=== PATIENT | male | born 1980 | race Hispanic/Latino ===

== ENCOUNTER 2020-09-20 20:18 | Inpatient (IN) | payer OTHER ==
[~2020-09-20] VITALS: Ht 180.3 cm; Wt 122.9 kg
[2020-09-20 20:50] LABS: BASOPHILS % (AUTO) 0.5 % (0.0-5.0); HEMATOCRIT 34.1 % (42-54); LYMPHOCYTES % (AUTO) 13.7 % (21.0-51.0); MEAN CORPUSCULAR HEMOGLOBIN 30.1 pg (27.0-33.0); MEAN CORPUSCULAR HGB CONC 33.1 g/dL (32.0-36.0); MEAN CORPUSCULAR VOLUME 90.9 fL (79-99); NEUTROPHILS % (AUTO) 74.7 % (40.0-77.0); PLATELET COUNT (AUTO) 277 K/uL (130-400); RED BLOOD CELL COUNT(AUTO) 3.75 MIL/uL (4.50-6.20); RED CELL DISTRIBUTION WIDTH 13.2 % (11.0-15.5); WHITE BLOOD COUNT (AUTO) 14.5 K/uL (4.8-10.8)
[2020-09-20 21:06] LABS: ALBUMIN 2.7 g/dL (3.5-5.0); BILIRUBIN,TOTAL 0.4 mg/dL (0.2-1.0); CREATININE 1.1 mg/dL (0.5-1.5); POTASSIUM 4.1 mmol/L (3.5-5.1)
[2020-09-20] MEDS ORDERED: ONDANSETRON HCL 4 MG/2 ML VIAL ONE (21:28)
[2020-09-20] MEDS ORDERED: MORPHINE SULFATE 2 MG/ML 1ML SYG ONE (21:28)
[2020-09-20] MEDS ORDERED: CLINDAMYCIN 900 MG/D5% WATER 50 ML IV ONE (21:28)
[2020-09-20 22:34] LABS: APPEARANCE,URINE Clear (CLEAR); BILIRUBIN,URINE Negative (NEGATIVE); COLOR,URINE Yellow (YELLOW); GLUCOSE, URINE (UA) >=1000 mg/dL (NEGATIVE); KETONES,URINE Negative (NEGATIVE); LEUKOCYTE ESTERASE ,URINE Negative (NEGATIVE); NITRATE,URINE Negative (NEGATIVE); OCCULT BLOOD,URINE Negative (NEGATIVE); PH,URINE 6.5 (5.0-8.0); PROTEIN,URINE Trace mg/dL (NEGATIVE); UROBILINOGEN,URINE 0.2 mg/dL (0.2-1.0)
[2020-09-20 22:42] LABS: ABG HCO3 25.5 mmol/L (21.0-28.0); ABG OXYGEN SATURATION 94.9 % (95.0-99.0); ABG PCO2 40 mmHg (35-48)
[2020-09-20 22:49] LABS: BACTERIA,URINE None Seen /HPF (None Seen); MUCUS,URINE Few LPF (None Seen); RBC,URINE None Seen /HPF (0-1); WBC,URINE None Seen /HPF (0-1)
[2020-09-20] MEDS ORDERED: GLUCAGON 1MG KIT 1 MG ML IM PRN (23:00)
[2020-09-20] MEDS ORDERED: DEXTROSE 50%-WATER 50 ML DISP.SYRIN IV PRN (23:00)
[2020-09-20] MEDS: INSULIN HUMULIN R 100 UNIT/ML 3ML SQ SCH (23:00)
[2020-09-20 23:13] LABS: HEMOGLOBIN A1C 12.4 % (4.0-6.0)
[2020-09-20] MEDS: SODIUM CHLORIDE 0.9% 1000ML 1,000 ML IV SCH (23:15)
[2020-09-20] MEDS ORDERED: NITROGLYCERIN 0.4 MG SL TAB SL PRN (23:15)
[2020-09-20] MEDS ORDERED: ONDANSETRON HCL 4 MG/2 ML VIAL IV PRN (23:15)
[2020-09-20] MEDS ORDERED: SODIUM CHLORIDE 0.9% 1000ML 1,000 ML IV SCH ×2 (23:15→23:30)
[2020-09-20] MEDS ORDERED: ACETAMINOPHEN 325 MG TAB PO PRN (23:15)
[2020-09-20 23:16] LABS: MAGNESIUM 1.6 mg/dL (1.80-2.40)
[2020-09-20] MEDS ORDERED: KETOROLAC TROMETHAMINE 30MG/ML ONE (23:27)
[2020-09-20] MEDS ORDERED: LORAZEPAM 2 MG/ML 1 ML VIAL ONE (23:28)
[2020-09-20 23:29] LABS: INR 0.96 (0.85-1.15); PROTHROMBIN TIME 10.5 SEC (9.6-11.6)
[2020-09-20] MEDS ORDERED: INSULIN HUMULIN R 100 UNIT/ML 3ML ONE (23:29)
[2020-09-20 23:30] LABS: PARTIAL THROMBOPLASTIN TIME 26.2 SEC (26.3-35.5)
[2020-09-20 23:41] LABS: CRP QUANTITATIVE 119.7 mg/L (0.00-9.0)
[2020-09-21] MEDS ORDERED: INSULIN GLARGINE 100 UNITS/ML 10 ML VIAL SQ SCH
[2020-09-21] MEDS ORDERED: MAGNESIUM 2GM PREMIX 50ML 50 ML IV SCH ×2 (00:30)
[2020-09-21] MEDS ORDERED: MAGNESIUM 2GM PREMIX 50ML 50 ML IV ONE (01:04)
[2020-09-21] MEDS ORDERED: INSULIN HUMULIN R 100 UNIT/ML 3ML ONE ×3 (03:56→16:09)
[2020-09-21] MEDS: INSULIN HUMULIN R 100 UNIT/ML 3ML SQ SCH ×6 (04:00→23:00)
[2020-09-21] MEDS ORDERED: CLINDAMYCIN 600 MG/D5% WATER 50 ML IV ONE ×3 (04:24→12:34)
[2020-09-21] MEDS ORDERED: HYDROCODONE/ACETAMINOPHEN 5/325 MG TAB ONE ×4 (04:30→20:14)
[2020-09-21] MEDS: CLINDAMYCIN 600 MG/D5% WATER 50 ML IV SCH ×3 (05:00→21:00)
[2020-09-21 06:18] LABS: BASOPHILS % (AUTO) 0.3 % (0.0-5.0); EOSINOPHILS % (AUTO) 1.9 % (0.0-8.0); LYMPHOCYTES % (AUTO) 13.4 % (21.0-51.0); MEAN CORPUSCULAR HGB CONC 33.1 g/dL (32.0-36.0); MEAN CORPUSCULAR VOLUME 90.4 fL (79-99); MONOCYTES % (AUTO) 7.4 % (3.0-13.0); NEUTROPHILS % (AUTO) 76.2 % (40.0-77.0); PLATELET COUNT (AUTO) 259 K/uL (130-400); RED BLOOD CELL COUNT(AUTO) 3.87 MIL/uL (4.50-6.20); RED CELL DISTRIBUTION WIDTH 13.1 % (11.0-15.5); WHITE BLOOD COUNT (AUTO) 14.3 K/uL (4.8-10.8)
[2020-09-21 06:44] LABS: ALBUMIN 2.8 g/dL (3.5-5.0); BILIRUBIN,TOTAL 0.5 mg/dL (0.2-1.0); CREATININE 0.7 mg/dL (0.5-1.5); POTASSIUM 4.4 mmol/L (3.5-5.1); TOTAL PROTEIN, SERUM 6.4 g/dL (6.0-8.3)
[2020-09-21] MEDS: SODIUM CHLORIDE 0.9% 1000ML 1,000 ML IV SCH ×3 (07:15→23:15)
[2020-09-21] MEDS ORDERED: HYDROCODONE/ACETAMINOPHEN 10/325 MG TAB ONE (07:41)
[2020-09-21] MEDS ORDERED: ENOXAPARIN SODIUM 40 MG/0.4 ML SYRINGE SQ ONE (07:41)
[2020-09-21] MEDS ORDERED: FAMOTIDINE 20MG TAB 20 MG TAB ONE (07:41)
[2020-09-21] MEDS: FAMOTIDINE 20MG TAB 20 MG TAB PO SCH ×2 (09:00→21:00)
[2020-09-21] MEDS: ENOXAPARIN SODIUM 40 MG/0.4 ML SYRINGE SQ SCH (09:00)
[2020-09-21] MEDS: INSULIN GLARGINE 100 UNITS/ML 10 ML VIAL SQ SCH (21:00)
[2020-09-22] MEDS ORDERED: LABETALOL HCL 5 MG/ML 20ML VIAL IV ONE
[2020-09-22] MEDS ORDERED: HYDROCODONE/ACETAMINOPHEN 5/325 MG TAB ONE ×3 (00:39→07:49)
[2020-09-22] MEDS: INSULIN HUMULIN R 100 UNIT/ML 3ML SQ SCH ×7 (04:00→20:32)
[2020-09-22] MEDS: CLINDAMYCIN 600 MG/D5% WATER 50 ML IV SCH ×3 (05:00→20:31)
[2020-09-22 05:40] LABS: BASOPHILS % (AUTO) 0.5 % (0.0-5.0); EOSINOPHILS % (AUTO) 1.9 % (0.0-8.0); HEMATOCRIT 34.5 % (42-54); LYMPHOCYTES % (AUTO) 12.7 % (21.0-51.0); MEAN CORPUSCULAR HEMOGLOBIN 29.1 pg (27.0-33.0); MEAN CORPUSCULAR HGB CONC 32.2 g/dL (32.0-36.0); MEAN CORPUSCULAR VOLUME 90.6 fL (79-99); MONOCYTES % (AUTO) 8.2 % (3.0-13.0); NEUTROPHILS % (AUTO) 75.5 % (40.0-77.0); PLATELET COUNT (AUTO) 307 K/uL (130-400); RED BLOOD CELL COUNT(AUTO) 3.81 MIL/uL (4.50-6.20); WHITE BLOOD COUNT (AUTO) 16.7 K/uL (4.8-10.8)
[2020-09-22] MEDS ORDERED: CLINDAMYCIN 600 MG/D5% WATER 50 ML IV ONE (05:53)
[2020-09-22 05:55] LABS: CREATININE 0.6 mg/dL (0.5-1.5); POTASSIUM 4.3 mmol/L (3.5-5.1)
[2020-09-22] MEDS: SODIUM CHLORIDE 0.9% 1000ML 1,000 ML IV SCH ×2 (07:15→15:01)
[2020-09-22] MEDS ORDERED: INSULIN HUMULIN R 100 UNIT/ML 3ML ONE (07:50)
[2020-09-22] MEDS ORDERED: FAMOTIDINE 20MG TAB 20 MG TAB ONE (08:07)
[2020-09-22] MEDS ORDERED: ENOXAPARIN SODIUM 40 MG/0.4 ML SYRINGE SQ ONE (08:08)
[2020-09-22] MEDS: FAMOTIDINE 20MG TAB 20 MG TAB PO SCH ×2 (09:00→20:31)
[2020-09-22] MEDS: ENOXAPARIN SODIUM 40 MG/0.4 ML SYRINGE SQ SCH (09:00)
[2020-09-22 12:45] VITALS: BP 199/97
[2020-09-22] MEDS: HYDROCODONE/ACETAMINOPHEN 5/325 MG TAB PO PRN ×3 (13:43→20:33)
[2020-09-22] MEDS ORDERED: METF-446 PO (14:04)
[2020-09-22] MEDS ORDERED: INSU100V12 SQ (14:04)
[2020-09-22] MEDS ORDERED: LOSA50TA64 PO (14:04)
[2020-09-22] MEDS ORDERED: CARI1.5C PO (14:04)
[2020-09-22] MEDS ORDERED: GABA-533 PO (14:04)
[2020-09-22] MEDS ORDERED: ATOR40TA71 PO (14:04)
[2020-09-22 17:50] VITALS: BP 140/66
[2020-09-22 20:14] VITALS: BP 179/89
[2020-09-22] MEDS: INSULIN GLARGINE 100 UNITS/ML 10 ML VIAL SQ SCH (20:32)
[2020-09-22] MEDS: ACETAMINOPHEN 325 MG TAB PO PRN (23:25)
[2020-09-23 00:08] VITALS: BP 179/97
[2020-09-23] MEDS ORDERED: LABETALOL HCL 5 MG/ML 20ML VIAL IV ONE (00:29)
[2020-09-23 03:52] VITALS: BP 158/79
[2020-09-23] MEDS: SODIUM CHLORIDE 0.9% 1000ML 1,000 ML IV SCH ×4 (03:55→22:17)
[2020-09-23] MEDS: CLINDAMYCIN 600 MG/D5% WATER 50 ML IV SCH (03:56)
[2020-09-23] MEDS: HYDROCODONE/ACETAMINOPHEN 5/325 MG TAB PO PRN ×4 (03:59→22:16)
[2020-09-23 05:07] LABS: BASOPHILS % (AUTO) 0.4 % (0.0-5.0); EOSINOPHILS % (AUTO) 1.7 % (0.0-8.0); HEMATOCRIT 32.6 % (42-54); LYMPHOCYTES % (AUTO) 11.3 % (21.0-51.0); MEAN CORPUSCULAR HEMOGLOBIN 29.6 pg (27.0-33.0); MEAN CORPUSCULAR HGB CONC 32.8 g/dL (32.0-36.0); MEAN CORPUSCULAR VOLUME 90.1 fL (79-99); MONOCYTES % (AUTO) 9.7 % (3.0-13.0); NEUTROPHILS % (AUTO) 75.3 % (40.0-77.0); PLATELET COUNT (AUTO) 280 K/uL (130-400); RED BLOOD CELL COUNT(AUTO) 3.62 MIL/uL (4.50-6.20); RED CELL DISTRIBUTION WIDTH 13.2 % (11.0-15.5); WHITE BLOOD COUNT (AUTO) 16.9 K/uL (4.8-10.8)
[2020-09-23 05:25] LABS: CREATININE 0.7 mg/dL (0.5-1.5)
[2020-09-23] MEDS: INSULIN HUMULIN R 100 UNIT/ML 3ML SQ SCH ×7 (06:23→21:50)
[2020-09-23 08:17] VITALS: BP 204/105
[2020-09-23] MEDS: GABAPENTIN 100 MG CAPSULE PO SCH ×3 (09:41→20:28)
[2020-09-23] MEDS: LOSARTAN 50 MG TABLET PO SCH (09:41)
[2020-09-23] MEDS: ENOXAPARIN SODIUM 40 MG/0.4 ML SYRINGE SQ SCH (09:42)
[2020-09-23] MEDS: FAMOTIDINE 20MG TAB 20 MG TAB PO SCH ×2 (09:42→20:27)
[2020-09-23] MEDS ORDERED: PHARMACY COMMUNICATION MISC SCH (10:45)
[2020-09-23 12:08] VITALS: BP 161/75
[2020-09-23] MEDS: NAFCILLIN 2GM+ NS 100ML 100 ML IV SCH ×4 (13:38→21:48)
[2020-09-23] MEDS: AMLODIPINE BESYLATE 5 MG TAB PO SCH (13:38)
[2020-09-23 15:22] LABS: AMPHET/METH SCREEN,URINE NEGATIVE (NEGATIVE); BARBITURATE SCREEN, URINE NEGATIVE (NEGATIVE); BENZODIAZEPINES SCREEN,URINE NEGATIVE (NEGATIVE); CANNABINOID SCREEN,URINE NEGATIVE (NEGATIVE); COCAINE SCREEN,URINE NEGATIVE (NEGATIVE); OPIATE SCREEN,URINE POSITIVE (NEGATIVE); PHENCYCLIDINE SCREEN,URINE NEGATIVE (NEGATIVE)
[2020-09-23 16:30] VITALS: BP 184/89
[2020-09-23 20:00] VITALS: BP 164/88
[2020-09-23] MEDS: ATORVASTATIN CALCIUM 40 MG TABLET PO SCH (20:28)
[2020-09-23] MEDS: VRAYLAR 1.5 MG PO SCH (20:32)
[2020-09-23] MEDS: INSULIN GLARGINE 100 UNITS/ML 10 ML VIAL SQ SCH (21:51)
[2020-09-24] VITALS (7 sets, daily range): BP systolic 138–188; BP diastolic 6–116
[2020-09-24] MEDS: NAFCILLIN 2GM+ NS 100ML 100 ML IV SCH ×6 (02:08→22:33)
[2020-09-24] MEDS: HYDROCODONE/ACETAMINOPHEN 5/325 MG TAB PO PRN ×5 (02:17→22:34)
[2020-09-24 04:21] LABS: BASOPHILS % (AUTO) 0.4 % (0.0-5.0); EOSINOPHILS % (AUTO) 1.9 % (0.0-8.0); HEMATOCRIT 31.2 % (42-54); LYMPHOCYTES % (AUTO) 9.7 % (21.0-51.0); MEAN CORPUSCULAR HEMOGLOBIN 29.9 pg (27.0-33.0); MEAN CORPUSCULAR HGB CONC 33.3 g/dL (32.0-36.0); MEAN CORPUSCULAR VOLUME 89.7 fL (79-99); MONOCYTES % (AUTO) 10.5 % (3.0-13.0); NEUTROPHILS % (AUTO) 75.6 % (40.0-77.0); PLATELET COUNT (AUTO) 308 K/uL (130-400); RED BLOOD CELL COUNT(AUTO) 3.48 MIL/uL (4.50-6.20); RED CELL DISTRIBUTION WIDTH 13.3 % (11.0-15.5); WHITE BLOOD COUNT (AUTO) 18.2 K/uL (4.8-10.8)
[2020-09-24 04:29] LABS: CREATININE 0.7 mg/dL (0.5-1.5); POTASSIUM 3.8 mmol/L (3.5-5.1)
[2020-09-24] MEDS: SODIUM CHLORIDE 0.9% 1000ML 1,000 ML IV SCH ×3 (06:13→22:00)
[2020-09-24] MEDS: INSULIN HUMULIN R 100 UNIT/ML 3ML SQ SCH ×8 (06:21→20:39)
[2020-09-24] MEDS: GABAPENTIN 100 MG CAPSULE PO SCH ×3 (09:00→20:37)
[2020-09-24] MEDS: AMLODIPINE BESYLATE 5 MG TAB PO SCH ×2 (11:44→20:36)
[2020-09-24] MEDS: LOSARTAN 50 MG TABLET PO SCH (11:44)
[2020-09-24] MEDS: FAMOTIDINE 20MG TAB 20 MG TAB PO SCH ×2 (11:45→20:36)
[2020-09-24] MEDS: ENOXAPARIN SODIUM 40 MG/0.4 ML SYRINGE SQ SCH (12:09)
[2020-09-24] MEDS: ATORVASTATIN CALCIUM 40 MG TABLET PO SCH (20:36)
[2020-09-24] MEDS: INSULIN GLARGINE 100 UNITS/ML 10 ML VIAL SQ SCH (20:38)
[2020-09-24] MEDS: VRAYLAR 1.5 MG PO SCH (21:00)
[2020-09-25] VITALS (24 sets, daily range): BP systolic 125–172; BP diastolic 69–99
[2020-09-25] MEDS: INSULIN HUMULIN R 100 UNIT/ML 3ML SQ SCH ×8 (02:29→20:21)
[2020-09-25] MEDS: NAFCILLIN 2GM+ NS 100ML 100 ML IV SCH ×6 (02:45→22:30)
[2020-09-25 06:02] LABS: BASOPHILS % (AUTO) 0.4 % (0.0-5.0); EOSINOPHILS % (AUTO) 2.1 % (0.0-8.0); MEAN CORPUSCULAR HEMOGLOBIN 29.7 pg (27.0-33.0); MEAN CORPUSCULAR HGB CONC 32.8 g/dL (32.0-36.0); MEAN CORPUSCULAR VOLUME 90.7 fL (79-99); MONOCYTES % (AUTO) 8.3 % (3.0-13.0); NEUTROPHILS % (AUTO) 74.9 % (40.0-77.0); PLATELET COUNT (AUTO) 319 K/uL (130-400); RED BLOOD CELL COUNT(AUTO) 3.53 MIL/uL (4.50-6.20); RED CELL DISTRIBUTION WIDTH 13.4 % (11.0-15.5); WHITE BLOOD COUNT (AUTO) 14.8 K/uL (4.8-10.8)
[2020-09-25 06:12] LABS: CREATININE 0.7 mg/dL (0.5-1.5); MAGNESIUM 1.9 mg/dL (1.80-2.40); POTASSIUM 3.7 mmol/L (3.5-5.1)
[2020-09-25] MEDS: SODIUM CHLORIDE 0.9% 1000ML 1,000 ML IV SCH ×4 (06:42→22:47)
[2020-09-25] MEDS: LOSARTAN 50 MG TABLET PO SCH (07:36)
[2020-09-25] MEDS: AMLODIPINE BESYLATE 5 MG TAB PO SCH ×2 (07:37→20:10)
[2020-09-25] MEDS: HYDROCODONE/ACETAMINOPHEN 5/325 MG TAB PO PRN ×2 (07:38→13:45)
[2020-09-25] MEDS: ENOXAPARIN SODIUM 40 MG/0.4 ML SYRINGE SQ SCH (09:00)
[2020-09-25] MEDS: GABAPENTIN 100 MG CAPSULE PO SCH ×3 (09:00→20:10)
[2020-09-25] MEDS: FAMOTIDINE 20MG TAB 20 MG TAB PO SCH ×2 (09:00→20:10)
[2020-09-25] MEDS: KETOROLAC TROMETHAMINE 30MG/ML IV PRN (16:43)
[2020-09-25] MEDS ORDERED: MIDAZOLAM HCL 1 MG/ML 2ML VIAL ONE (18:07)
[2020-09-25] MEDS ORDERED: LIDOCAINE HCL MPF 1% 5ML VIAL ONE (18:07)
[2020-09-25] MEDS ORDERED: PROPOFOL 10 MG/ML 20ML VIAL IV ONE (18:07)
[2020-09-25] MEDS ORDERED: SUCCINYLCHOLINE 200MG/10ML SYR ONE (18:07)
[2020-09-25] MEDS ORDERED: FENTANYL CITRATE PF 50 MCG/1 ML 2ML VIAL ONE (18:08)
[2020-09-25] MEDS ORDERED: MEPERIDINE-PF 25 MG/ML SYG ONE ×2 (18:31)
[2020-09-25] MEDS: ATORVASTATIN CALCIUM 40 MG TABLET PO SCH (20:10)
[2020-09-25] MEDS: VRAYLAR 1.5 MG PO SCH (20:12)
[2020-09-25] MEDS: INSULIN GLARGINE 100 UNITS/ML 10 ML VIAL SQ SCH (20:25)
[2020-09-25 20:41] LABS: HEMATOCRIT 33.3 % (42-54); MEAN CORPUSCULAR HEMOGLOBIN 30.1 pg (27.0-33.0); MEAN CORPUSCULAR HGB CONC 32.4 g/dL (32.0-36.0); MEAN CORPUSCULAR VOLUME 92.8 fL (79-99); PLATELET COUNT (AUTO) 325 K/uL (130-400); RED BLOOD CELL COUNT(AUTO) 3.59 MIL/uL (4.50-6.20); RED CELL DISTRIBUTION WIDTH 13.5 % (11.0-15.5)
[2020-09-25 21:08] LABS: BAND NEUTROPHILS % (MANUAL) 1 % (0-2); EOSINOPHILS % (MANUAL) 3 % (1-6); LYMPHOCYTES % (MANUAL) 10 % (22-44); MAN.DIFF COMMENT-IMPRESSION MANUAL DIFFERENTIAL; MONOCYTES % (MANUAL) 3 % (2-9); SEGMENTED NEUTROPHILS % 83 % (40-70)
[2020-09-26] VITALS (7 sets, daily range): BP systolic 124–168; BP diastolic 73–93
[2020-09-26] MEDS: KETOROLAC TROMETHAMINE 30MG/ML IV PRN ×4 (01:14→22:02)
[2020-09-26] MEDS: NAFCILLIN 2GM+ NS 100ML 100 ML IV SCH ×5 (02:51→20:06)
[2020-09-26] MEDS: INSULIN HUMULIN R 100 UNIT/ML 3ML SQ SCH ×8 (05:23→20:16)
[2020-09-26] MEDS: SODIUM CHLORIDE 0.9% 1000ML 1,000 ML IV SCH ×2 (06:41→17:57)
[2020-09-26 06:48] LABS: BASOPHILS % (AUTO) 0.5 % (0.0-5.0); EOSINOPHILS % (AUTO) 2.8 % (0.0-8.0); HEMATOCRIT 33.5 % (42-54); LYMPHOCYTES % (AUTO) 17.3 % (21.0-51.0); MEAN CORPUSCULAR HEMOGLOBIN 28.5 pg (27.0-33.0); MEAN CORPUSCULAR HGB CONC 31.3 g/dL (32.0-36.0); MEAN CORPUSCULAR VOLUME 90.8 fL (79-99); MONOCYTES % (AUTO) 9.2 % (3.0-13.0); NEUTROPHILS % (AUTO) 68.1 % (40.0-77.0); PLATELET COUNT (AUTO) 380 K/uL (130-400); RED BLOOD CELL COUNT(AUTO) 3.69 MIL/uL (4.50-6.20); RED CELL DISTRIBUTION WIDTH 13.3 % (11.0-15.5); WHITE BLOOD COUNT (AUTO) 13.1 K/uL (4.8-10.8)
[2020-09-26 06:59] LABS: CREATININE 0.7 mg/dL (0.5-1.5)
[2020-09-26] MEDS: AMLODIPINE BESYLATE 5 MG TAB PO SCH ×2 (09:16→20:06)
[2020-09-26] MEDS: LOSARTAN 50 MG TABLET PO SCH (09:16)
[2020-09-26] MEDS: FAMOTIDINE 20MG TAB 20 MG TAB PO SCH ×2 (09:16→20:06)
[2020-09-26] MEDS: GABAPENTIN 100 MG CAPSULE PO SCH ×3 (09:16→20:06)
[2020-09-26] MEDS: ENOXAPARIN SODIUM 40 MG/0.4 ML SYRINGE SQ SCH (09:16)
[2020-09-26] MEDS: VRAYLAR 1.5 MG PO SCH (20:06)
[2020-09-26] MEDS: ATORVASTATIN CALCIUM 40 MG TABLET PO SCH (20:06)
[2020-09-26] MEDS: ACETAMINOPHEN 325 MG TAB PO PRN (20:07)
[2020-09-26] MEDS: INSULIN GLARGINE 100 UNITS/ML 10 ML VIAL SQ SCH (20:16)
[2020-09-27] MEDS: NAFCILLIN 2GM+ NS 100ML 100 ML IV SCH ×4 (00:27→11:22)
[2020-09-27 04:00] VITALS: BP 139/66
[2020-09-27] MEDS: KETOROLAC TROMETHAMINE 30MG/ML IV PRN ×3 (05:18→18:44)
[2020-09-27 05:46] LABS: BASOPHILS % (AUTO) 0.8 % (0.0-5.0); EOSINOPHILS % (AUTO) 4.7 % (0.0-8.0); HEMATOCRIT 32.7 % (42-54); LYMPHOCYTES % (AUTO) 22.2 % (21.0-51.0); MEAN CORPUSCULAR HEMOGLOBIN 29.5 pg (27.0-33.0); MEAN CORPUSCULAR HGB CONC 32.1 g/dL (32.0-36.0); MEAN CORPUSCULAR VOLUME 91.9 fL (79-99); NEUTROPHILS % (AUTO) 58.7 % (40.0-77.0); PLATELET COUNT (AUTO) 341 K/uL (130-400); RED BLOOD CELL COUNT(AUTO) 3.56 MIL/uL (4.50-6.20); RED CELL DISTRIBUTION WIDTH 13.5 % (11.0-15.5); WHITE BLOOD COUNT (AUTO) 7.4 K/uL (4.8-10.8)
[2020-09-27] MEDS: INSULIN HUMULIN R 100 UNIT/ML 3ML SQ SCH ×6 (05:49→16:30)
[2020-09-27 05:57] LABS: CREATININE 0.7 mg/dL (0.5-1.5); POTASSIUM 4.4 mmol/L (3.5-5.1)
[2020-09-27 09:33] VITALS: BP 171/93
[2020-09-27] MEDS: FAMOTIDINE 20MG TAB 20 MG TAB PO SCH (09:38)
[2020-09-27] MEDS: LOSARTAN 50 MG TABLET PO SCH (09:38)
[2020-09-27] MEDS: AMLODIPINE BESYLATE 5 MG TAB PO SCH (09:38)
[2020-09-27] MEDS: GABAPENTIN 100 MG CAPSULE PO SCH ×2 (09:38→15:16)
[2020-09-27] MEDS: ENOXAPARIN SODIUM 40 MG/0.4 ML SYRINGE SQ SCH (09:39)
[2020-09-27] MEDS: ACETAMINOPHEN 325 MG TAB PO PRN ×2 (09:44→15:16)
[2020-09-27 12:49] VITALS: BP 189/105
[2020-09-27] MEDS ORDERED: HONEY 1 APPL/ML TUBE TP SCH (13:30)
[2020-09-27] MEDS ORDERED: CEFUROXIME AXETIL 250 MG TABLET PO SCH (13:45)
[2020-09-27] MEDS ORDERED: CEFU500T67 PO (13:45)
[2020-09-27 16:48] VITALS: BP 189/100
== END 2020-09-27 19:00 | disposition home or self-care (01) | DRG 854 ==
LOC: EDH 20:18 → EDHIP 20:19 → 3AH 09-22 09:17
PROVIDERS: ADMIT Internal Medicine; ATTEND Internal Medicine
PROC: 0J900ZZ Drainage of Scalp Subcutaneous Tissue and Fascia, Open Approach (ICD-10-PCS; principal; 2020-09-25 18:05)
DX: A41.02 Sepsis due to Methicillin resistant Staphylococcus aureus (principal); L02.811 Cutaneous abscess of head [any part, except face]; L03.811 Cellulitis of head [any part, except face]; E87.1 Hypo-osmolality and hyponatremia; R65.20 Severe sepsis without septic shock; E11.65 Type 2 diabetes mellitus with hyperglycemia; Z68.37 Body mass index [BMI] 37.0-37.9, adult; E66.9 Obesity, unspecified; E78.5 Hyperlipidemia, unspecified; E83.42 Hypomagnesemia; I10 Essential (primary) hypertension; Z20.822 Contact with and (suspected) exposure to COVID-19
CPT/HCPCS: 36415; 36600; 70486; 80048; 80053; 80305; 81001; 82010; 82803; 82948; 83036; 83605; 83690; 83735; 84145; 84484; 85025; 85610; 85651; 85730; 86140; 87040; 87070; 87076; 87077; 87186; 87205; 87426; 87641; 93005; A6266; G0378; J0330; J1650; J1815; J1885; J2060; J2175; J2250; J2405; J2704; J3010; J3475; J3490; J7030; U0003

== ENCOUNTER → 2020-10-13 | Outpatient (CLI) | payer MEDICAID, OTHER ==
[~2020-10-13] MED LIST: ATOR40TA71 PO; CARI1.5C PO; CEFU500T67 PO; GABA-533 PO; HONEY 1 APPL/ML TUBE TP ONE; INSU100V12 SQ; LIDOCAINE HCL 4% LTA SOL 4 ML VIAL TP ONE; LOSA50TA64 PO; METF-446 PO
== END | disposition home or self-care (01) ==
LOC: WHH 08:50
PROVIDERS: ATTEND Family Medicine
DX: S01.80XA Unspecified open wound of other part of head, initial encounter (principal); E11.628 Type 2 diabetes mellitus with other skin complications; I10 Essential (primary) hypertension; E78.5 Hyperlipidemia, unspecified; E66.9 Obesity, unspecified; F17.200 Nicotine dependence, unspecified, uncomplicated; F41.9 Anxiety disorder, unspecified; F31.9 Bipolar disorder, unspecified; Z68.36 Body mass index [BMI] 36.0-36.9, adult; X58.XXXA Exposure to other specified factors, initial encounter; Y93.89 Activity, other specified; Y92.89 Other specified places as the place of occurrence of the external cause; Y99.8 Other external cause status
CPT/HCPCS: 11042; A4450

== ENCOUNTER → 2020-10-27 | Outpatient (CLI) | payer MEDICAID | END | disposition home or self-care (01) | LOC: WHH 08:16 | PROVIDERS: ATTEND Family Medicine | DX: S01.80XD Unspecified open wound of other part of head, subsequent encounter (principal); E11.628 Type 2 diabetes mellitus with other skin complications; I10 Essential (primary) hypertension; E78.5 Hyperlipidemia, unspecified; E66.9 Obesity, unspecified; F17.200 Nicotine dependence, unspecified, uncomplicated; F41.9 Anxiety disorder, unspecified; F31.9 Bipolar disorder, unspecified; Z68.36 Body mass index [BMI] 36.0-36.9, adult; X58.XXXD Exposure to other specified factors, subsequent encounter | CPT/HCPCS: 11042; A6212 ==

== ENCOUNTER → 2020-11-03 | Outpatient (CLI) | payer MEDICAID ==
[~2020-11-03] MED LIST changes: -HONEY 1 APPL/ML TUBE TP ONE; -LIDOCAINE HCL 4% LTA SOL 4 ML VIAL TP ONE
== END | disposition home or self-care (01) ==
LOC: WHH 08:28
PROVIDERS: ATTEND Family Medicine
DX: S01.80XD Unspecified open wound of other part of head, subsequent encounter (principal); E11.628 Type 2 diabetes mellitus with other skin complications; I10 Essential (primary) hypertension; E78.5 Hyperlipidemia, unspecified; E66.9 Obesity, unspecified; F17.200 Nicotine dependence, unspecified, uncomplicated; F41.9 Anxiety disorder, unspecified; F31.9 Bipolar disorder, unspecified; Z68.36 Body mass index [BMI] 36.0-36.9, adult; X58.XXXD Exposure to other specified factors, subsequent encounter
CPT/HCPCS: 99214

== ENCOUNTER 2020-12-18 08:33 | Emergency (ER) | payer MEDICAID ==
[~2020-12-18] VITALS: Ht 180.3 cm; Wt 120.2 kg
[2020-12-18 08:57] VITALS: BP 173/92
[2020-12-18 09:18] LABS: BASOPHILS % (AUTO) 0.7 % (0.0-5.0); EOSINOPHILS % (AUTO) 2.8 % (0.0-8.0); LYMPHOCYTES % (AUTO) 22.1 % (21.0-51.0); MEAN CORPUSCULAR HEMOGLOBIN 28.4 pg (27.0-33.0); MEAN CORPUSCULAR HGB CONC 32.3 g/dL (32.0-36.0); MEAN CORPUSCULAR VOLUME 88.1 fL (79-99); MONOCYTES % (AUTO) 6.2 % (3.0-13.0); PLATELET COUNT (AUTO) 268 K/uL (130-400); RED BLOOD CELL COUNT(AUTO) 4.54 MIL/uL (4.50-6.20); RED CELL DISTRIBUTION WIDTH 13.6 % (11.0-15.5); WHITE BLOOD COUNT (AUTO) 9.2 K/uL (4.8-10.8)
[2020-12-18 09:21] LABS: INR 0.99 (0.85-1.15); PROTHROMBIN TIME 10.8 SEC (9.6-11.6)
[2020-12-18 09:22] LABS: CREATININE 0.8 mg/dL (0.5-1.5); POTASSIUM 4.7 mmol/L (3.5-5.1)
[2020-12-18 09:23] LABS: PARTIAL THROMBOPLASTIN TIME 26.3 SEC (26.3-35.5)
[2020-12-18 09:24] LABS: ALBUMIN 3.7 g/dL (3.5-5.0); BILIRUBIN,TOTAL 0.6 mg/dL (0.2-1.0); TOTAL PROTEIN, SERUM 7.6 g/dL (6.0-8.3)
[2020-12-18 09:41] LABS: B-TYPE NATRIURETIC PEPTIDE 18 pg/mL (0-100)
[2020-12-18 10:47] LABS: APPEARANCE,URINE Clear (CLEAR); BILIRUBIN,URINE Negative (NEGATIVE); COLOR,URINE Yellow (YELLOW); GLUCOSE, URINE (UA) 250 mg/dL (NEGATIVE); KETONES,URINE Negative (NEGATIVE); LEUKOCYTE ESTERASE ,URINE Negative (NEGATIVE); NITRATE,URINE Negative (NEGATIVE); OCCULT BLOOD,URINE Negative (NEGATIVE); PROTEIN,URINE POS 2+ mg/dL (NEGATIVE)
[2020-12-18 10:53] LABS: BACTERIA,URINE None Seen /HPF (None Seen); RBC,URINE None Seen /HPF (0-1); SQUAMOUS EPITHELIAL CELL,UR Rare /HPF (0-2); WBC,URINE None Seen /HPF (0-1)
[2020-12-18] MEDS ORDERED: NAPR-1180 PO (11:48)
== END 2020-12-18 12:36 | disposition home or self-care (01) ==
LOC: EDH 08:33
DX: R07.89 Other chest pain (principal); E11.65 Type 2 diabetes mellitus with hyperglycemia; F41.9 Anxiety disorder, unspecified; I10 Essential (primary) hypertension; E78.00 Pure hypercholesterolemia, unspecified; F31.9 Bipolar disorder, unspecified; E66.9 Obesity, unspecified; Z79.4 Long term (current) use of insulin; Z79.899 Other long term (current) drug therapy; Z68.30 Body mass index [BMI] 30.0-30.9, adult
CPT/HCPCS: 36415; 71045; 80053; 81001; 82550; 83880; 84484; 85025; 85610; 85730; 93005

== ENCOUNTER → 2021-08-30 | Outpatient (CLI) | payer MEDICAID ==
[~2021-08-30] MED LIST changes: +NAPR-1180 PO
== END ==
LOC: RAH 10:06
PROVIDERS: ATTEND Family Medicine
DX: I10 Essential (primary) hypertension (principal); Z87.891 Personal history of nicotine dependence
CPT/HCPCS: 71046

== ENCOUNTER 2024-07-03 17:19 | Emergency (ER) | payer SELFPAY ==
[~2024-07-03] VITALS: Ht 180.3 cm; Wt 117.9 kg
[~2024-07-03 17:19] MED LIST changes: +CLIN-141 PO; -GABA-533 PO; +GABA-534 PO
--- NOTE | 2024-07-03 17:22 | NUR ---
UA CUP PROVIDED
[2024-07-03 18:23] LABS: BASOPHILS # (AUTO) 0.04 K/uL (0.00-0.20); BASOPHILS % (AUTO) 0.4 % (0.0-5.0); EOSINOPHILS # (AUTO) 0.13 K/uL (0.00-0.70); EOSINOPHILS % (AUTO) 1.4 % (0.0-8.0); HEMATOCRIT 43.8 % (42-54); IMMATURE GRANULOCYTE ABSOLUTE 0.09 K/uL (0-1); LYMPHOCYTES # (AUTO) 2.7 K/uL (1.0-4.8); LYMPHOCYTES % (AUTO) 28.8 % (21.0-51.0); MEAN CORPUSCULAR HEMOGLOBIN 30.7 pg (27.0-33.0); MEAN CORPUSCULAR VOLUME 90.3 fL (79-99); MONOCYTES # (AUTO) 0.6 K/uL (0.1-1.0); MONOCYTES % (AUTO) 6.5 % (3.0-13.0); NEUTROPHILS # (AUTO) 5.8 K/uL (1.8-7.7); NEUTROPHILS % (AUTO) 61.9 % (40.0-77.0); PLATELET COUNT (AUTO) 284 K/uL (130-400); RED BLOOD CELL COUNT(AUTO) 4.85 MIL/uL (4.50-6.20); RED CELL DISTRIBUTION WIDTH 12.3 % (11.0-15.5); WHITE BLOOD COUNT (AUTO) 9.3 K/uL (4.8-10.8)
[2024-07-03 18:30] LABS: POTASSIUM 3.7 mmol/L (3.5-5.1)
[2024-07-03 18:37] LABS: ALBUMIN 3.7 g/dL (3.5-5.0); BILIRUBIN,TOTAL 0.4 mg/dL (0.2-1.0); TOTAL PROTEIN, SERUM 7.7 g/dL (6.0-8.3)
[2024-07-03 18:43] LABS: APPEARANCE,URINE CLEAR (CLEAR); BILIRUBIN,URINE NEGATIVE (NEGATIVE); COLOR,URINE YELLOW (YELLOW); GLUCOSE, URINE (UA) >=1000 mg/dL (NEGATIVE); KETONES,URINE 5 mg/dL (NEGATIVE); LEUKOCYTE ESTERASE ,URINE NEGATIVE Leu/uL (NEGATIVE); NITRATE,URINE NEGATIVE (NEGATIVE); OCCULT BLOOD,URINE NEGATIVE (NEGATIVE); PH,URINE 5.5 (5.0-8.0); PROTEIN,URINE 300 mg/dL (NEGATIVE); UROBILINOGEN,URINE 3 mg/dL (0.2-1.0)
[2024-07-03 18:44] LABS: ADD UA MICROSCOPIC YES
[2024-07-03 18:48] LABS: MUCUS,URINE RARE LPF (None Seen); RBC,URINE 0-1 /HPF (0-1); SQUAMOUS EPITHELIAL CELL,UR RARE /HPF (0-2)
--- NOTE | 2024-07-03 19:05 | ERN ---
General Chief Complaint: Abdominal Pain Stated Complaint: ABD PAIN Time Seen by MD: 17:20 Source: patient History of Present Illness Initial Comments PATIENT IS A 44-YEAR-OLD GENTLEMAN COMING IN TO BE EVALUATED FOR LEFT UPPER QUADRANT PAIN. PER PATIENT THE PAIN HAS BEEN PRESENT FOR GREATER THAN A MONTH BUT STATES THE PAIN HAS BEEN MORE EXCRUCIATING DECIDED TO COME IN FOR FURTHER EVALUATION. PATIENT LOCALIZES THE PAIN TO THE LEFT UPPER QUADRANT AREA. Allergies: Coded Allergies: No Allergy Information Available (Verified Allergy, Unknown, 09/21/20) No Known Allergies (Unverified Allergy, Unknown, 12/18/20) Home Meds Active Scripts Clindamycin HCl (Clindamycin HCl) 300 Mg Capsule, 1 CAP PO QID for 10 Days, #40 CAP 0 Refills Prov:MATT RUST 12/10/21 Naproxen (Naprosyn) 500 Mg Tablet, 500 MG PO BID PRN for PAIN LEVEL 1 TO 5, #20 TAB Prov:LAURENCE CAMARENA MD 12/18/20 Cefuroxime Axetil (Cefuroxime) 500 Mg Tablet, 500 MG PO BID for 10 Days, #20 TAB 0 Refills Prov:HA DEUTSCH MD 09/27/20 Reported Medications Atorvastatin Calcium (Atorvastatin Calcium) 40 Mg Tablet, 40 MG PO HS, TAB 09/22/20 Gabapentin (Gabapentin) 400 Mg Capsule, 400 MG PO TID, CAP 09/22/20 Metformin HCl (Metformin HCl) 1,000 Mg Tablet, 1000 MG PO BIDMEALS, TAB 09/22/20 Losartan Potassium (Losartan Potassium) 50 Mg Tablet, 50 MG PO DAILY, TAB 09/22/20 Cariprazine Hydrochloride (Vraylar) 1.5 Mg Capsule, 1.5 MG PO HS, CAP 09/22/20 Insulin Detemir (Levemir) 100 Unit/1 Ml Vial, 40 UNIT SQ HS, VIAL 09/22/20 Past Medical History Past Medical History: Anxiety, Bipolar, Depression, Diabetes-Type II, High Cholesterol, Hypertension Past Surgical History: Other, None Surgical History Other: ABSCESS REMOVAL HEAD Social History Social History: Lives with family ROS Dictation CONSTITUTIONAL: NO CHILLS, NO FEVER, NO WEAKNESS, NO DIAPHORESIS, NO MALAISE. HEAD/FACE: NO SIGNS OF TRAUMA. EENT: NO EYE PAIN, NO BLURRED VISION, NO TEARING, NO DOUBLE VISION, NO EAR PAIN, NO EAR DISCHARGE, NO NOSE PAIN, NO NASAL CONGESTION, NO THROAT PAIN, NO THROAT SWELLING, NO MOUTH PAIN. RESPIRATORY: NO COUGH, NO ORTHOPNEA, NO SOB, NO STRIDOR, NO WHEEZING. CARDIOVASCULAR: NO CHEST PAIN, NO EDEMA, NO PALPITATIONS, NO SYNCOPE. GASTROINTESTINAL/ABDOMINAL: ABDOMINAL PAIN, NO CONSTIPATION, NO DIARRHEA, NO NAUSEA, NO VOMITING. GENITOURINARY: NO ABNORMAL DISCHARGE, NO DYSURIA, NO FREQUENT URINATION, NO HEMATURIA. NO COMPLAINTS OF PAIN IN THE GENITALS. MUSCULOSKELETAL: NO BACK PAIN, NO GOUT, NO JOINT PAIN, NO JOINT SWELLING, NO MUSCLE PAIN, NO MUSCLE STIFFNESS, NO NECK PAIN. INTEGUMENTARY: NO CHANGE IN COLOR, NO CHANGE IN HAIR/NAILS, NO DRYNESS, NO LESION, NO LUMPS, NO RASH. NEUROLOGICAL/PSYCH: NO ANXIETY, NOT DEPRESSED, NO EMOTIONAL PROBLEM, NO HEADACHE, NO NUMBNESS, NO PRE-EXISTING DEFICIT, NO HISTORY OF SEIZURES, NO TREMORS, NO WEAKNESS. HEMATOLOGIC/LYMPHATIC: NOT ANEMIC, NO HISTORY OF BLOOD CLOTS, NO APPARENT BLEEDING, NO BRUISING, GLANDS NOT SWOLLEN. ALL SYSTEMS NEGATIVE, EXCEPT NOTED. Physical Exam Physical Exam Dictation VITAL SIGNS: REVIEWED. GENERAL APPEARANCE: ALERT, ORIENTED X3, NO ACUTE DISTRESS, OBESE. HEAD AND FACE: NON-TRAUMATIC. EYES: PERRL, PINK CONJUNCTIVAS, EYELID NO TRAUMA, ANTERIOR CHAMBER CLEAR. EARS: PINNAS INTACT AND NO SIGNS OF TRAUMA OR ERYTHEMA. EAR CANALS CLEAR AND NO DISCHARGE. TMS NO ERYTHEMA. NOSE: NO DISCHARGE, NO BLEEDING. OROPHARYNX: MOUTH NORMAL, TEETH NO CARIES, TONGUE PINK. PHARYNX CLEAR, NO ERYTHEMA. TONSILS NO EXUDATES, NO ABSCESSES NOTED. MUCOUS MEMBRANE MOIST. NECK: SUPPLE, NON-TENDER, NO THYROMEGALY, NO MASSES, NO JVD, NO BRUITS. BREAST: DEFERRED. CHEST: NO TENDERNESS, NO CREPITUS, NO PARADOXICAL MOVEMENT, NO RETRACTIONS. LUNGS: CLEAR, WELL-VENTILATED, SYMMETRIC, NO RALES, NO WHEEZING, NO RHONCHI, NO STRIDOR, GOOD BREATH SOUNDS BILATERALLY. HEART: REGULAR RATE, REGULAR RHYTHM, NO MURMUR, NO GALLOPS. VASCULAR: NO PERIPHERAL EDEMA. ABDOMEN: SOFT, POSITIVE BOWEL SOUNDS, NONDISTENDED, NO GUARDING, LEFT UPPER QUADRANT TENDER, NO REBOUND, NO MASSES NO HEPATOMEGALY, NO SPLENOMEGALY, NO ENRIQUEZ'S SIGN, NO HERNIAS. RECTAL: DEFERRED. GENITAL: DEFERRED. NEUROLOGICAL: NORMAL SPEECH, GROSS MOTOR FUNCTION INTACT, GROSS SENSORY FUNCTION INTACT. MUSCULOSKELETAL: NECK NONTENDER, FULL RANGE OF MOTION, BACK NONTENDER, FULL RANGE OF MOTION. EXTREMITIES: NONTENDER, FULL RANGE OF MOTION. SKIN: COLOR PINK, DRY, NO TURGOR, NO RASH, NO LACERATIONS, NO ABRASIONS, NO CONTUSIONS. LYMPHATICS: DEFERRED. Results Laboratory and Microbiology Lab and Micro Result Laboratory Tests Test 07/03/24 18:14 White Blood Count 9.3 K/uL (4.8-10.8) Red Blood Count 4.85 MIL/uL (4.50-6.20) Hemoglobin 14.9 g/dL (14.0-18.0) Hematocrit 43.8 % (42-54) Mean Corpuscular Volume 90.3 fL (79-99) Mean Corpuscular Hemoglobin 30.7 pg (27.0-33.0) Mean Corpuscular Hemoglobin Concent 34.0 g/dL (32.0-36.0) Red Cell Distribution Width 12.3 % (11.0-15.5) Platelet Count 284 K/uL (130-400) Mean Platelet Volume 10.2 fL (7.5-10.5) Immature Granulocyte % (Auto) 1.0 % (0-1) Neutrophils (%) (Auto) 61.9 % (40.0-77.0) Lymphocytes (%) (Auto) 28.8 % (21.0-51.0) Monocytes (%) (Auto) 6.5 % (3.0-13.0) Eosinophils (%) (Auto) 1.4 % (0.0-8.0) Basophils (%) (Auto) 0.4 % (0.0-5.0) Neutrophils # (Auto) 5.8 K/uL (1.8-7.7) Lymphocytes # (Auto) 2.7 K/uL (1.0-4.8) Monocytes # (Auto) 0.6 K/uL (0.1-1.0) Eosinophils # (Auto) 0.13 K/uL (0.00-0.70) Basophils # (Auto) 0.04 K/uL (0.00-0.20) Absolute Immature Granulocyte (auto 0.09 K/uL (0-1) Nucleated Red Blood Cells 0.0 % (0.0-0.19) Urine Color YELLOW (YELLOW) Urine Appearance CLEAR (CLEAR) Urine pH 5.5 (5.0-8.0) Urine Specific [place] 1.029 (1.001-1.031) Urine Protein 300 mg/dL (NEGATIVE) H Urine Glucose (UA) >=1000 mg/dL (NEGATIVE) H Urine Ketones 5 mg/dL (NEGATIVE) H Urine Occult Blood NEGATIVE (NEGATIVE) Urine Nitrate NEGATIVE (NEGATIVE) Urine Bilirubin NEGATIVE mg/dL (NEGATIVE) Urine Urobilinogen 3 mg/dL (0.2-1.0) H Urine Leukocyte Esterase NEGATIVE Tony/uL Urine RBC 0-1 /HPF (0-1) Urine WBC 2-5 /HPF (0-1) H Urine Squamous Epithelial Cells RARE /HPF (0-2) Urine Bacteria None /HPF (None Seen) Sodium Level 133 mmol/L (136-145) L Potassium Level 3.7 mmol/L (3.5-5.1) Chloride Level 98 mmol/L (101-111) L Carbon Dioxide Level 28 mmol/L (21-32) Blood Urea Nitrogen 16 mg/dL (7-18) Creatinine 1.0 mg/dL (0.5-1.3) Glomerular Filtration Rate Calc 95 mL/min (>90) Random Glucose 304 mg/dL (70-105) H Total Calcium 8.8 mg/dL (8.5-10.1) Total Bilirubin 0.4 mg/dL (0.2-1.0) Aspartate Amino Transf (AST/SGOT) 17 U/L (10-37) Alanine Aminotransferase (ALT/SGPT) 32 U/L (12-78) Alkaline Phosphatase 87 U/L (50-136) Total Creatine Kinase 64 U/L (21-232) # Troponin I High Sensitivity 14.3 ng/L (4-75) Total Protein 7.7 g/dL (6.0-8.3) Albumin 3.7 g/dL (3.5-5.0) Lipase 33 U/L (16-77) Labs Reviewed?: Yes EKG/XRAY/US/CT/MRI CT Scan Comment PATIENT: KAMRON BARBOSA MR#: [id number] : 1980 SEX: M AGE: 44 LOCATION: [facility] ORDER 03 STATUS: [facility] ER REPORT#: [id number] SERVICE 02 REASON: ABD PAIN ORDERING PHYSICIAN: SHAYE TOTH MD PROCEDURE: ABD PEL WO - CT ABDOMEN/PELVIS W/O CONTRAST CT ABDOMEN/PELVIS W/O CONTRAST INDICATION: ABD PAIN TECHNIQUE: CT ABDOMEN/PELVIS W/O CONTRAST. Oral contrast was not given. Coronal and sagittal reformats were performed. CT was performed with one or more of the following dose reduction techniques: Automated exposure control, adjustment of the mA and/or kV according to the patient's size, or use of the iterative reconstruction technique. Comparison: None. FINDINGS: The noncontrast nature this study limits evaluation of abdominal viscera. No pulmonary consolidation or pleural effusion is seen. There is hepatic steatosis. No calcified gallstone is seen. The spleen, pancreas, and adrenal glands are within normal limits. No hydronephrosis. The urinary bladder is partially collapsed. Reproductive organs are grossly within normal limits for patient's age. No bowel obstruction identified. Appendix is normal in caliber. Atherosclerotic changes of the aorta with calcified plaques. Degenerative changes of the spine are seen. IMPRESSION: No acute CT findings. DICTATED BY: AMY ADHIKARI MD DATE: 07/03/241932 ELECTRONICALLY SIGNED BY: AMY ADHIKARI MD DATE: 07/03/241937 [facility] MDM: DIFFERENTIAL DIAGNOSIS: RATIONALE: TESTS CONSIDERED AND ORDERED SECONDARY TO SHARED DECISION MAKING INCLUDE: PREVIOUS OUTSIDE RECORDS REVIEWED: OLD ER VISITS. RISK OF COMPLICATION AND/OR MORBIDITY OR MORTALITY OF PATIENT MANAGEMENT: NONE MEDICATIONS-PER MEDICATION RECONCILIATION NEED FOR HOSPITALIZATION: PATIENT DOES NOT MEET CRITERIA FOR HOSPITALIZATION. NEED FOR EMERGENCY MAJOR/MINOR SURGERY: NO THERE ARE NO SOCIAL CONCERNS WITH THIS PATIENT. PRESCRIPTION DRUG MANAGEMENT PRESCRIPTIONS WILL INCLUDE SYMPTOMATIC CARE PATIENT'S PRIOR EXTERNAL MEDICAL RECORDS FROM OTHER ER VISITS WERE REVIEWED BY ME INDICATED. PRIOR TESTING AND RESULTS FROM PREVIOUS VISITS WERE REVIEWED. PRIOR TESTS WERE TAKEN INTO ACCOUNT WITH MEDICAL DECISION MAKING AND RESOURCE UTILIZATION, INDEPENDENT HISTORIAN/HISTORIANS WERE USED TO OBTAIN COMPLETE MEDICAL HISTORY. I INDEPENDENTLY INTERPRETED THE TEST THAT WERE PERFORMED, RESULTS WERE REVIEWED BY ME AND CONSIDERED FINDINGS ON RADIOLOGY IF ORDERED. MEDICAL MANAGEMENT AND EXAMINATION INTERPRETATION DISCUSSIONS WERE HAD BY ME WITH OTHER QUALIFIED HEALTHCARE PROFESSIONALS INDICATED FOR THE PATIENT'S CARE. ED Course Orders Procedure Category Date Status Time Cbc With Differential LAB 07/03/24 Complete 18:03 Comprehensive LAB 07/03/24 Complete Metabolic Panel 18:03 Urinalysis Profile LAB 07/03/24 Complete 18:03 0.9%Nacl 1000ml (Ns PHA 07/03/24 In Process 1000ml) 18:30 Ct Abdomen/Pelvis W/O CT 07/03/24 Resulted Contrast 18:03 Lipase LAB 07/03/24 Complete 18:03 Cardiac Panel LAB 07/03/24 Complete 18:14 Current Medications Medications (Trade) Dose Ordered Sig/Mick Route PRN Reason Start Time Stop Time Status Last Admin Dose Admin Sodium Chloride 1,000 ml @ 0 mls/hr ONCE IV 07/03/24 18:30 07/04/24 18:29 07/03/24 19:50 Vital Signs Date Time Temp Pulse Resp B/P (MAP) Pulse Ox O2 Delivery O2 Flow Rate FiO2 07/03/24 19:57 97.0 78 20 145/74 97 Room Air* 0 21 07/03/24 17:20 98.1 20 20 149/97 98 Room Air DX & DISP Disposition: Discharge Departure Impression: Primary Impression: Abdominal pain Additional Impression: Musculoskeletal pain Condition: Stable Additional Instructions: Patient and the caregiver have been informed of all the diagnostic tests and the imaging conducted during the today's visit to the emergency room and has verbalized understanding of the results I have personally reviewed and interpreted all diagnostic exams performed here in the ER today as well as the vital signs documented by the nursing staff. The patient is now being discharged to home and should follow up with the primary care physician or the specialist as directed by the ER staff. Referrals: KENDRA CARLOS (PCP) SHAYE TOTH MD Jul 03, 2024 19:05 YANCY BENJAMIN MD Jul 03, 2024 19:57
--- NOTE | 2024-07-03 19:38 | HMCIMG ---
CT ABDOMEN/PELVIS W/O CONTRAST INDICATION: ABD PAIN TECHNIQUE: CT ABDOMEN/PELVIS W/O CONTRAST. Oral contrast was not given. Coronal and sagittal reformats were performed. CT was performed with one or more of the following dose reduction techniques: Automated exposure control, adjustment of the mA and/or kV according to the patient's size, or use of the iterative reconstruction technique. Comparison: None. FINDINGS: The noncontrast nature this study limits evaluation of abdominal viscera. No pulmonary consolidation or pleural effusion is seen. There is hepatic steatosis. No calcified gallstone is seen. The spleen, pancreas, and adrenal glands are within normal limits. No hydronephrosis. The urinary bladder is partially collapsed. Reproductive organs are grossly within normal limits for patient's age. No bowel obstruction identified. Appendix is normal in caliber. Atherosclerotic changes of the aorta with calcified plaques. Degenerative changes of the spine are seen. IMPRESSION: No acute CT findings.
[2024-07-03] MEDS: 0.9%NACL 1000ML 1,000 ML IV SCH (19:50)
[2024-07-03 19:57] VITALS: BP 145/74; PULSE 78; RESP 20; TEMP 97; O2SAT 97
== END 2024-07-03 20:23 | disposition home or self-care (01) ==
LOC: EDH 17:19
DX: R10.12 Left upper quadrant pain (principal); M79.18 Myalgia, other site; E11.9 Type 2 diabetes mellitus without complications; E78.00 Pure hypercholesterolemia, unspecified; F31.9 Bipolar disorder, unspecified; I10 Essential (primary) hypertension; Z79.899 Other long term (current) drug therapy
CPT/HCPCS: 99284; 74176; 82550; 84484; 80053; 83690; 85025; 81001; 36415; J7030; 96374; 96375; 99285